=== PATIENT | female | born 1955 | race Caucasian/White ===

== ENCOUNTER 2021-05-01 00:27 | Day surgery (SDC) | payer MEDICARE, OTHER, SELFPAY ==
[2021-04-19 12:50] VITALS: BMI 21.7
--- NOTE | 2021-04-30 18:22 | PM.HPGS ---
History of Present Illness History of Present Illness Consent: Risks, benefits, and alternatives have been discussed and questions answered. Patient agrees to proceed with procedure. Chief complaint: neoplasm screening Narrative: Marilyn Baker is a 65 year old female here for colon cancer screening. This is her 1st colonoscopy Review of Systems Review of Systems: All systems reviewed & are unremarkable except as noted in HPI and below PMFSH Social History Social History Living arrangements: alone Spiritual care concerns: No Meds Home Medications and Allergies Home Medications Medication Instructions Recorded Confirmed Type atorvastatin 10 mg PO DAILY 04/19/21 04/19/21 History oxybutynin chloride 5 mg PO DAILY 04/19/21 04/19/21 History Allergies Allergy/AdvReac Type Severity Reaction Status Date / Time No Known Allergies Allergy Verified 05/01/21 07:37 Exam Resp: Auscultation: clear to auscultation bilaterally Cardio: Rate: regular rate Rhythm: regular rhythm GI: GI Palp: Yes Soft to palpation and No Tenderness to palpation present (GI) Assessment and Plan Assessment and plan (1) Colon cancer screening: Code(s): Z12.11 - Encounter for screening for malignant neoplasm of colon Status: Acute Assessment and Plan: Colonoscopy with possible biopsy or polypectomy or cautery or injection of substances.
[2021-05-01 07:38] VITALS: BP 127/82; PULSE 66; RESP 18; TEMP 36.2; O2SAT 99
[2021-05-01] MEDS: LACTATED RINGERS 1,000 ML 150 ML IV CONT (07:47)
[2021-05-01 08:58] VITALS: BP 97/64; PULSE 57; RESP 15; O2SAT 94
[2021-05-01 09:08] VITALS: BP 116/77; PULSE 66; RESP 17; O2SAT 100
[2021-05-01 09:18] VITALS: BP 138/92; PULSE 60; RESP 18; O2SAT 99
== END 2021-05-01 09:33 | disposition home or self-care (01) ==
PROVIDERS: PCP Family Medicine Adolescent Medicine; Visit Provider Internal Medicine Gastroenterology
PROC: 0DJD8ZZ Inspection of Lower Intestinal Tract, Via Natural or Artificial Opening Endoscopic (ICD-10-PCS; CPT 45378; principal; 2021-05-01 08:45)
DX: Z12.11 Encounter for screening for malignant neoplasm of colon (principal); K57.30 Diverticulosis of large intestine without perforation or abscess without bleeding; K63.5 Polyp of colon; D12.2 Benign neoplasm of ascending colon
CPT/HCPCS: 45385; 88305; J2704; J7120

== ENCOUNTER → 2021-07-27 11:08 | Outpatient (CLI) | payer MEDICARE, OTHER, SELFPAY ==
--- NOTE | ~2021-07-27 | DEXA_ITS ---
Bone Density Report Name: CLARISSA AMAYA V Age: 65 Sex: Female Ethnicity: White Date of : 1955 Indication: postmenopausal; screening for osteoporosis; height loss; prior fracture; Referring Provider: ZEUS JARRETT Study: Bone densitometry was performed. Exam Date: July 27, 2021 Accession number: [id number] Bone Density: Region BMD T-score Z-score Classification AP Spine (L1-L4) 0.761 -2.6 -0.8 Osteoporosis Femoral Neck (Left) 0.511 -3.0 -1.5 Osteoporosis Total Hip (Left) 0.599 -2.8 -1.5 Osteoporosis Femoral Neck (Right) 0.517 -3.0 -1.4 Osteoporosis Total Hip (Right) 0.616 -2.7 -1.4 Osteoporosis Total Hip Mean 0.608 -2.8 -1.5 Osteoporosis World Health Organization criteria for BMD impression classify patients as: Normal (T-score at or above -1.0), Osteopenia (T-score between -1.0 and -2.5), or Osteoporosis (T-score at or below -2.5). 10-year Fracture Risk: FRAX not reported because: Some T-score for Spine Total or Hip Total or Femoral Neck at or below -2.5 Clinical Information Provided by Patient: Has had a low trauma fracture Has used the following medications: Vitamin D, Calcium Patient maximum height was 61.25 Menopause Age: 48 Drinks caffeinated beverages Onset of menses at age 10 Number of children 1 Impression: The patient has established osteoporosis, based on the Left Femoral Neck T-score and the existence of a prior fracture. The patient has risk factors, including: previous fracture. Discussion: HIGH RISK OF FRACTURE. BONE DENSITY IS UNDESIRABLY LOW AT ONE OR MORE SKELETAL SITES, CONSISTENT WITH POSTMENOPAUSAL OSTEOPOROSIS. This patient's lowest T-score, in a patient who has previously fractured, meets the World Health Organization's (WHO) criteria for severe osteoporosis. In untreated patients, the risk of osteoporotic fracture increases approximately two-fold for each 1.0 SD decrease in T-score. Low bone density is not the only risk factor for fracture; also consider factors such as patient's age, frailty or poor health, risk of falling, risk of injury, previous osteoporotic fracture, family history of osteoporosis, cigarette smoking, low body weight, etc. Not everyone with low bone mineral density has osteoporosis; osteomalacia and other metabolic bone disorders should also be considered. Patients who have osteoporosis should be evaluated for specific diseases and conditions (secondary causes) that may cause or contribute to bone loss. The [place] [employer]ocr[employer] (AACE) and National Osteoporosis Foundation (NOF) recommend pharmacologic intervention for all postmenopausal women whose T-score is in this range. The patient should follow a healthful lifestyle (good nutrition with adequate calcium and vitamin D, and appropriate weight-bearing exercise). Fo
--- NOTE | ~2021-07-27 | MM_ITS ---
EXAMINATION: MM screening david BI w thomas HISTORY: Screening mammogram TECHNIQUE: Craniocaudal and mediolateral oblique 3-D tomosynthesis images were obtained and synthetic 2-D images were generated. CAD analysis was submitted and interpreted. COMPARISON: 11/26/2014 BREAST PARENCHYMAL COMPOSITION: There are scattered areas of fibroglandular density. FINDINGS: There is no evidence of suspicious mass, calcification, or architectural distortion to sugg est malignancy in either breast. There has been no suspicious interval change. IMPRESSION: 1. No mammographic evidence of malignancy. 2. Recommend routine screening mammography in one year. BI-RADS Category 1: Negative Reviewed, dictated and finalized at location A. CAMERA OPERATOR
== END ==
PROVIDERS: PCP Family Medicine Adolescent Medicine; Visit Provider Physician Assistant
DX: Z12.31 Encounter for screening mammogram for malignant neoplasm of breast (principal); Z78.0 Asymptomatic menopausal state; M81.0 Age-related osteoporosis without current pathological fracture
CPT/HCPCS: 77063; 77067; 77080

== ENCOUNTER → 2022-04-16 09:02 | Outpatient (CLI) | payer MEDICARE, OTHER, SELFPAY ==
--- NOTE | ~2022-04-16 | XR_ITS ---
EXAMINATION: [id number] DATE: 04/16/2022 09:29 INDICATION: Neck pain. TECHNIQUE: 3 views of cervical spine were obtained. COMPARISON: None. FINDINGS: There is 2 mm anterolisthesis of C4 on C5 and 2 mm retrolisthesis of C6 on C7. Vertebral aixa dy heights are normal. There is mildly decreased disc height at C4-C5, moderately decreased disc heig ht at C5-C6, and C6 severely decreased disc height at C6-C7. There is multilevel mild to moderate fac et joint osteoarthrosis. There is multilevel uncovertebral joint osteoarthritis, severe bilaterally a t C6-C7. There is mild central canal stenosis at C5-C6 and C6-C7. No prevertebral soft tissue swellin g. IMPRESSION: 1. Severe cervical spondylosis. Reviewed, dictated and finalized at location A.
== END ==
PROVIDERS: PCP Family Medicine Adolescent Medicine; Visit Provider Physician Assistant
DX: M54.2 Cervicalgia (principal); M47.812 Spondylosis without myelopathy or radiculopathy, cervical region
CPT/HCPCS: 72040

== ENCOUNTER 2023-05-23 06:32 | Outpatient (CLI) | payer MEDICARE, OTHER, SELFPAY ==
--- NOTE | ~2023-05-23 | CT_ITS ---
CT scan of the left foot CLINICAL HISTORY: Cellulitis and left foot wound TECHNIQUE: Following intravenous administration of 100 cc of Omnipaque 350 contrast material, axial i maging of the left foot was performed. Sagittal and coronal reformatted images were reconstructed. Do se reduction technique was used on this scan by utilizing automated exposure control and iterative re construction technique. The dose-length product (DLP) was 372.11 mGy-cm. Findings: There is orthopedic fixation across the first tarsometatarsal joint and Lisfranc articulati on. There are additional orthopedic screws at the first proximal phalanx, and at the second and third metatarsal heads. There is severe hallux valgus with mild to moderate degenerative change at the fir st MTP joint. There is dorsal subluxation of the second through fifth metatarsophalangeal joints. Pos sible prior resection of the fifth metatarsal head. There is advanced degenerative change at the four th and fifth tarsometatarsal joints. Questionable focal soft tissue ulcer to plantar aspect of the midfoot. No abscess identified. No soft tissue mass seen. There is mild diffuse subcutaneous soft tissue edema, nonspecific. IMPRESSION: No definite evidence for osteomyelitis or abscess. Questionable focal soft tissue ulcer to plantar as pect of the midfoot. Correlate with physical exam. Postoperative changes at the first tarsal metatarsal joint and Lisfranc joint, as well as at the firs t proximal phalanx and second and third metatarsal heads. Correlate with surgical history. Severe hallux valgus. Significant dorsal subluxation of the second through fifth metatarsophalangeal joints. Possible prior resection of the fifth metatarsal head. Advanced degenerative change at the fourth and fifth tarsometatarsal joints. Nonspecific subcutaneous soft tissue edema. Reviewed, dictated and finalized at [facility]. IMPRESSION: No definite evidence for osteomyelitis or abscess. Questionable focal soft tiss ue ulcer to plantar aspect of the midfoot. Correlate with physical exam. Postoperative changes at the first tarsal metatarsal joint and Lisfranc joint, as well as at the first proximal phalanx and second and third metatarsal heads. Correlate with surgical history. Severe hallux valgus. Significant dorsal subluxation of the second through fifth metatarsophalangeal joints. Possible prior resection of the fifth metatarsal head. Advanced degenerative change at the fourth and fifth tarsometatarsal joints. Nonspecific subcutaneous soft tissue edema.
== END 2023-05-23 06:33 | disposition home or self-care (01) ==
LOC: ANHIMG 06:37
PROVIDERS: PCP Family Medicine Adolescent Medicine; Visit Provider Podiatrist Foot & Ankle Surgery
DX: L03.116 Cellulitis of left lower limb (principal); L97.522 Non-pressure chronic ulcer of other part of left foot with fat layer exposed; M20.12 Hallux valgus (acquired), left foot; R60.9 Edema, unspecified
CPT/HCPCS: 73701; Q9967

== ENCOUNTER → 2023-10-09 10:48 | Outpatient (CLI) | payer MEDICARE, OTHER, SELFPAY ==
--- NOTE | ~2023-10-09 | MM_ITS ---
EXAMINATION: MM screening david BI w thomas HISTORY: Screening mammogram TECHNIQUE: Craniocaudal and mediolateral oblique 3-D tomosynthesis images were obtained and synthetic 2-D images were generated. CAD analysis was submitted and interpreted. COMPARISON: 07/27/2021 bilateral screening mammogram BREAST PARENCHYMAL COMPOSITION: There are scattered areas of fibroglandular density. FINDINGS: There is no evidence of suspicious mass, calcification, or architectural distortion to sugg est malignancy in either breast. There has been no suspicious interval change. IMPRESSION: 1. No mammographic evidence of malignancy. 2. Recommend routine screening mammography in one year. BI-RADS Category 1: Negative Reviewed, dictated and finalized at location A. MOUNTER
--- NOTE | ~2023-10-09 | DEXA_ITS ---
Bone Density Report Name: CLARISSA AMAYA V Age: 68 Sex: Female Ethnicity: White Date of : 1955 Indication: postmenopausal osteoporosis; monitoring treatment; prior fracture; Referring Provider: IZZY BARBER Study: Bone densitometry was performed. Exam Date: October 09, 2023 Accession number: [id number] Bone Density: Region BMD T-score Z-score Classification AP Spine (L1-L4) 0.856 -1.7 0.2 Osteopenia Femoral Neck (Left) 0.570 -2.5 -0.8 Osteoporosis Total Hip (Left) 0.648 -2.4 -1.0 Osteopenia Femoral Neck (Right) 0.548 -2.7 -1.0 Osteoporosis Total Hip (Right) 0.643 -2.5 -1.1 Osteoporosis Total Hip Mean 0.646 -2.5 -1.1 Osteopenia World Health Organization criteria for BMD impression classify patients as: Normal (T-score at or above -1.0), Osteopenia (T-score between -1.0 and -2.5), or Osteoporosis (T-score at or below -2.5). 10-year Fracture Risk: FRAX not reported because: Some T-score for Spine Total or Hip Total or Femoral Neck at or below -2.5 Treated for osteoporosis Previous Exams: Region Exam Age BMD T-score BMD Change BMD Change Date g/cm2 vs Baseline vs Previous AP Spine(L1-L4) 10/09/2023 68 0.856 -1.7 0.095* 0.095* 07/27/2021 65 0.761 -2.6 Total Hip(Left) 10/09/2023 68 0.648 -2.4 0.049* 0.049* 07/27/2021 65 0.599 -2.8 Total Hip(Right) 10/09/2023 68 0.643 -2.5 0.027 0.027 07/27/2021 65 0.616 -2.7 *Denotes significance at 95% confidence level, LSC for AP Spine = 0.022 g/cm2, LSC for Total Hip = 0.027 g/cm2 Clinical Information Provided by Patient: Has had a low trauma fracture Is being treated for osteoporosis Has used the following medications: Boniva (i.e. ibandronate), Vitamin D, Calcium, MTV Patient maximum height was 61.25 Menopause Age: 48 Drinks caffeinated beverages Onset of menses at age 10 Number of children 1 Impression: The patient has established osteoporosis, based on the Right Femoral Neck T-score and the existence of a prior fracture. The patient has risk factors, including: previous fracture. No significant bone loss was observed. Discussion: PATIENT UNDER TREATMENT WITH NO SIGNIFICANT BMD LOSS SINCE LAST EXAM. In an untreated patient, BMD typically declines with age. A lack of decline or gain is usually a sign that treatment is efficacious and fracture risk is reduced. It is important to ask patients whether they are taking their medicat
== END ==
PROVIDERS: PCP Nurse Practitioner Family; Visit Provider Nurse Practitioner Family
DX: Z12.31 Encounter for screening mammogram for malignant neoplasm of breast (principal); Z78.0 Asymptomatic menopausal state; M85.89 Other specified disorders of bone density and structure, multiple sites; M81.0 Age-related osteoporosis without current pathological fracture
CPT/HCPCS: 77063; 77067; 77080

== ENCOUNTER 2024-03-23 12:45 | Outpatient (CLI) | payer MEDICARE, OTHER, SELFPAY | END 2024-03-23 12:46 | disposition home or self-care (01) | LOC: ANHAUDASC 12:46 | PROVIDERS: PCP Family Medicine Adolescent Medicine; Visit Provider Otolaryngology | DX: H90.3 Sensorineural hearing loss, bilateral (principal); H93.19 Tinnitus, unspecified ear; J30.2 Other seasonal allergic rhinitis | CPT/HCPCS: 92557; 92567 ==

== ENCOUNTER 2024-06-23 11:18 | Outpatient (CLI) | payer MEDICARE, OTHER, SELFPAY ==
--- NOTE | ~2024-06-23 | XR_ITS ---
XR chest 2V Ordering provider: Yashira Travis, SHARON History: 68 years Female with . R05.3 - Chronic cough . Comparison: None. FINDINGS: MEDIASTINUM: The cardiac silhouette is not enlarged. LUNGS: No infiltrates, effusions or pneumothorax. Emphysematous changes of the lungs. OTHER: No free air under the diaphragm. Healing fractures in the right upper and midthoracic ribs. Degenerative the spine. Compression fractu res in the midthoracic area most likely chronic. Clinical correlation advised. IMPRESSION: No acute cardiopulmonary pathology. Reviewed, dictated and finalized at location A. ARIAL CLERK
[2024-06-23 12:16] LABS: Hematocrit 29.3 % (37.0-47.0); Hemoglobin 10.2 g/dL (12.0-15.0); Immature Platelet Fraction Pct 5.2 % (0.9-11.2); Mean Corpuscular HGB Conc 34.8 g/dl (32-36); Mean Corpuscular Hemoglobin 31.5 pg (26-34); Mean Corpuscular Volume 90.4 fl (80-100); Mean Platelet Volume 11.3 fl (7.4-10.4); Platelet Count Result 94 k/mm3 (150-375); Red Blood Count 3.24 M/mm3 (4.2-5.4); Red Cell Distribution Width 15.1 % (11.5-14.5); White Blood Count 21.5 K/mm3 (4.5-10.0)
[2024-06-23 12:23] LABS: Alanine Aminotransferase 11 U/L (6-35); Albumin Level 2.7 g/dL (3.5-5.1); Alkaline Phosphatase 152 U/L (38-126); Anion Gap 9 mmol/L (4-12); Aspartate Amino Transferase 24 U/L (14-36); Bilirubin,Total 1.1 mg/dL (0.2-1.3); Blood Urea Nitrogen 37 mg/dL (7-17); Calcium 8.5 mg/dL (8.4-10.2); Carbon Dioxide 25 mmol/L (22-30); Chloride 96 mmol/L (98-107); Estimated Glomerular Filt Rate 32; Glucose 117 mg/dL (65-110); Potassium 3.6 mmol/L (3.4-5.0); Sodium 130 mmol/L (137-145)
[2024-06-23 12:49] LABS: Platelet Estimate Decreased (Adequate)
[2024-06-23 12:50] LABS: Band Neutrophils Percent 18 % (0-6); Lymphocytes Absolute Manual 1.07 K/mm3 (1.1-4.5); Lymphocytes Percent Manual 5 % (18-44); Monocytes Absolute Manual 0.43 K/mm3 (0.1-0.90); Monocytes Percent Manual 2 % (3-9); Neutrophils Absolute Manual 19.99 K/mm3 (1.7-7.2); Neutrophils Percent Manual 75 % (46-73); Total Cells Counted 100
[2024-06-23 12:55] LABS: Schistocytes None Seen
== END 2024-06-23 11:19 | disposition home or self-care (01) ==
PROVIDERS: PCP Family Medicine Adolescent Medicine; Visit Provider Nurse Practitioner Family
DX: N39.46 Mixed incontinence (principal); R05.3 Chronic cough
CPT/HCPCS: 36415; 71046; 80053; 85025; 85055